=== PATIENT | female | born 1995 | race Two or more races ===

== ENCOUNTER 2018-03-22 17:35 | Emergency (ER) | payer BC ==
[~2018-03-22] VITALS: Ht 157.5 cm; Wt 74.2 kg
[2018-03-22 19:08] LABS: APPEARANCE SL.HAZY ((CLEAR)); BILIRUBIN NEGATIVE; BLOOD NEGATIVE; COLOR YELLOW ((YELLOW)); GLUCOSE (STRIP) NEGATIVE; KETONES 5; LEUKOCYTES TRACE; NITRITE POSITIVE; PROTEIN (STRIP) 30; SPECIFIC GRAVITY 1.025 (1.000-1.030); UROBILINOGEN 0.2 MG/DL (0.2-1.0)
[2018-03-22 19:36] LABS: BACTERIA 3+ /HPF; EPITHELIAL CELLS NONE SEEN /HPF; MUCUS NONE SEEN /LPF; RED BLOOD CELLS NONE SEEN /HPF (0-5); UCUL ADDED? YES; WHITE BLOOD CELLS 0-5 /HPF (0-5)
[2018-03-22] MEDS ORDERED: MACROBID100 MG PO (19:40)
[2018-03-22 19:55] VITALS: BP 110/58
== END 2018-03-22 19:55 | disposition home or self-care (01) ==
LOC: EME 17:35
PROVIDERS: Physician Assistant
DX: R55 Syncope and collapse (principal); N39.0 Urinary tract infection, site not specified; B96.20 Unspecified Escherichia coli [E. coli] as the cause of diseases classified elsewhere; Z88.0 Allergy status to penicillin
CPT/HCPCS: 81003; 81025; 87077; 87086; 87186; 93005; 99281; 99284